=== PATIENT | female | born 1975 | race Native Hawaiian/Other Pacific Islander ===

== ENCOUNTER 2018-04-29 10:47 | Outpatient (CLI) | payer BC | END 2018-04-29 19:49 | disposition home or self-care (01) | LOC: MAMMO 10:47 | DX: Z12.31 Encounter for screening mammogram for malignant neoplasm of breast (principal) ==

== ENCOUNTER 2018-05-01 07:50 | Outpatient (CLI) | payer BC ==
[2018-05-01 08:45] LABS: POTASSIUM 3.8 mmol/L (3.6-5.2)
== END 2018-05-01 21:09 | disposition home or self-care (01) ==
LOC: LABW 07:50
PROVIDERS: Physician Assistant
DX: Z00.00 Encounter for general adult medical examination without abnormal findings (principal)
CPT/HCPCS: 36415; 80053; 80061; 82306; 83036; 84439; 84443

== ENCOUNTER 2020-05-11 08:16 | Outpatient (CLI) | payer BC | END 2020-05-11 20:54 | disposition home or self-care (01) | LOC: MAMMO 08:16 | PROVIDERS: ATTEND Nurse Practitioner Family | DX: Z12.31 Encounter for screening mammogram for malignant neoplasm of breast (principal) ==

== ENCOUNTER 2021-04-23 09:01 | Outpatient (CLI) | payer OTHER ==
[2021-04-23 15:13] LABS: PLATELET COUNT 304 K/uL (152-353)
[2021-04-23 15:36] LABS: POTASSIUM 4.2 mmol/L (3.6-5.2)
== END 2021-04-23 19:02 | disposition home or self-care (01) ==
LOC: CT 09:01 → LAB 09:01 → CT 19:02
PROVIDERS: ATTEND Internal Medicine
DX: N20.0 Calculus of kidney (principal); R53.81 Other malaise; R53.83 Other fatigue; Z79.899 Other long term (current) drug therapy; R63.5 Abnormal weight gain; R35.0 Frequency of micturition
CPT/HCPCS: 80053; 80061; 82306; 82607; 83036; 84439; 84443; 85027

== ENCOUNTER 2021-10-29 14:05 | Outpatient (CLI) | payer OTHER | END 2021-10-29 19:02 | disposition home or self-care (01) | LOC: LAB 14:05 | PROVIDERS: ATTEND Nurse Practitioner Family | DX: N95.1 Menopausal and female climacteric states (principal); R53.83 Other fatigue; E66.9 Obesity, unspecified; R53.81 Other malaise; R68.82 Decreased libido; L65.9 Nonscarring hair loss, unspecified | CPT/HCPCS: 82607; 82670; 83001; 84403; 84439; 84443; 84481; 86376 ==

== ENCOUNTER 2021-12-03 14:07 | Outpatient (CLI) | payer OTHER | END 2021-12-03 19:04 | disposition home or self-care (01) | LOC: LAB 14:07 | PROVIDERS: ATTEND Nurse Practitioner Family | DX: R63.4 Abnormal weight loss (principal); R53.81 Other malaise; R68.82 Decreased libido; N95.1 Menopausal and female climacteric states | CPT/HCPCS: 82670; 83001; 84403 ==

== ENCOUNTER 2022-06-11 12:35 | Outpatient (CLI) | payer OTHER ==
[2022-06-11 13:17] LABS: PLATELET COUNT 351 K/uL (152-353)
== END 2022-06-11 19:20 | disposition home or self-care (01) ==
LOC: LAB 12:35
PROVIDERS: ATTEND Nurse Practitioner Family
DX: E66.9 Obesity, unspecified (principal); R53.83 Other fatigue; R53.81 Other malaise; N95.1 Menopausal and female climacteric states; Z79.890 Hormone replacement therapy
CPT/HCPCS: 82670; 83001; 84403; 85027

== ENCOUNTER 2022-09-04 11:23 | Outpatient (CLI) | payer OTHER ==
[2022-09-04 11:51] LABS: PLATELET COUNT 302 K/uL (152-353)
== END 2022-09-04 19:54 | disposition home or self-care (01) ==
LOC: LAB 11:23
PROVIDERS: ATTEND Nurse Practitioner Family
DX: E66.9 Obesity, unspecified (principal); R53.83 Other fatigue; N95.1 Menopausal and female climacteric states; R68.82 Decreased libido; Z79.890 Hormone replacement therapy; R53.81 Other malaise
CPT/HCPCS: 82670; 83001; 84403; 85027

== ENCOUNTER 2022-09-18 12:31 | Outpatient (CLI) | payer OTHER ==
[2022-09-18 12:53] LABS: PLATELET COUNT 291 K/uL (152-353)
[2022-09-18 13:06] LABS: POTASSIUM 4.3 mmol/L (3.6-5.2)
== END 2022-09-18 23:02 | disposition home or self-care (01) ==
LOC: LAB 12:31
PROVIDERS: ATTEND Nurse Practitioner Family
DX: Z00.00 Encounter for general adult medical examination without abnormal findings (principal)
CPT/HCPCS: 80053; 80061; 82306; 84439; 84443; 85027

== ENCOUNTER 2022-09-27 08:52 | Outpatient (CLI) | payer OTHER | END 2022-09-27 20:14 | disposition home or self-care (01) | LOC: MAMMO 08:52 | PROVIDERS: ATTEND Nurse Practitioner Family | DX: Z12.31 Encounter for screening mammogram for malignant neoplasm of breast (principal) ==